=== PATIENT | male | born 1995 | race Caucasian/White ===

== ENCOUNTER 2019-01-04 22:33 | Emergency (ER) | payer OTHER ==
[2019-01-04 22:43] VITALS: BP 128/65; PULSE 81; TEMP 98; BMI 23.1
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
[2019-01-04] MEDS ORDERED: KETOROLAC TROMETHAMINE 30 MG/1 ML VIAL IM ONE (23:39)
[2019-01-04] MEDS ORDERED: KETOROLAC TROMETHAMINE 30 MG/1 ML VIAL ONE (23:55)
[2019-01-05] MEDS ORDERED: IBUPROFEN 600 MG TABLET (FP) PO ONE ×2 (00:03→00:15)
[2019-01-05] MEDS ORDERED: METHOCARBAMOL 500 MG TABLET PO ONE (00:51)
[2019-01-05] MEDS ORDERED: METHOCARBAMOL 500 MG TABLET ONE (00:55)
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
--- NOTE | 2019-01-07 10:37 | EKG ---
Test Reason : Blood Pressure : / mmHG Vent. Rate : 071 BPM Atrial Rate : 071 BPM P-R Int : 146 ms QRS Dur : 096 ms QT Int : 390 ms P-R-T Axes : 058 072 044 degrees QTc Int : 423 ms NORMAL SINUS RHYTHM CANNOT RULE OUT ANTERIOR INFARCT , AGE UNDETERMINED ABNORMAL ECG NO PREVIOUS ECGS AVAILABLE Confirmed by SARA CONRAD MD ([id number]) on 01/07/2019 10:36:51 AM Referred By: Confirmed By:SARA CONRAD MD
== END 2019-01-05 02:41 | disposition home or self-care (01) ==
LOC: JER 22:33
PROC: 3E0233Z Introduction of Anti-inflammatory into Muscle, Percutaneous Approach (ICD-10-PCS; principal; 2019-01-04)
DX: M54.2 Cervicalgia (principal); M54.6 Pain in thoracic spine; R07.9 Chest pain, unspecified; V43.52XA Car driver injured in collision with other type car in traffic accident, initial encounter; Y92.414 Local residential or business street as the place of occurrence of the external cause; Y93.89 Activity, other specified; Y99.8 Other external cause status
CPT/HCPCS: 71046-TC-FY; 72050-TC-FY; 72070-TC-FY; 93005; 93010; 99283-25

== ENCOUNTER 2019-09-11 18:40 | Emergency (ER) | payer OTHER ==
--- NOTE | 2019-09-11 19:04 | PDOC ---
Rapid Medical Evaluation Time Seen by Provider: 09/11/19 19:03 Medical Evaluation: Allergies Allergy/AdvReac Type Severity Reaction Status Date / Time No Known Allergies Allergy Verified 01/04/19 22:43 09/11/19 19:03 I have performed a brief in-person evaluation of this patient. The patient presents with a chief complaint of:R eye pain w/ PEARCE and feeling off balanced Pertinent physical exam findings:unremarkable I have ordered the following:none The patient will proceed to the ED for further evaluation. Discharge Disposition - Diagnosis Pain in right eye - Referrals - Patient Instructions - Post Discharge Activity
[2019-09-11 19:08] VITALS: BP 124/82; PULSE 107; TEMP 98.7; BMI 25.2
== END 2019-09-11 21:00 | disposition left against medical advice (07) ==
LOC: JERFT 18:40
DX: H57.11 Ocular pain, right eye (principal)
CPT/HCPCS: 99281-25

== ENCOUNTER 2019-10-31 11:47 | Emergency (ER) | payer OTHER ==
[2019-10-31 12:03] VITALS: BP 122/70; PULSE 96; TEMP 98.1; BMI 25.0
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
== END 2019-10-31 12:31 | disposition home or self-care (01) ==
LOC: JERFT 11:47
DX: M25.512 Pain in left shoulder (principal); F17.210 Nicotine dependence, cigarettes, uncomplicated; S49.92XA Unspecified injury of left shoulder and upper arm, initial encounter; W18.39XA Other fall on same level, initial encounter; Y93.89 Activity, other specified; Y92.89 Other specified places as the place of occurrence of the external cause
CPT/HCPCS: 99282-25

== ENCOUNTER 2020-10-23 13:05 | Emergency (ER) | payer OTHER ==
[2020-10-23 13:44] VITALS: BP 128/60; PULSE 96; TEMP 98.2; BMI 25.0
[2020-10-23 14:58] LABS: BASO % 0.6 % (0-2.0); EOS % 1.9 % (0-4.5); HEMATOCRIT 44.7 % (35.4-49); LYMPH % 29.6 % (8-40); MCHC 33.5 g/dl (32.0-35.9); MEAN CELL VOLUME 86.5 fl (80-96); MEAN PLT VOLUME 9.2 fl (7.5-11.1); MONO % 7.3 % (3.8-10.2); NEUT % 60.6 % (42.8-82.8); PLATELET COUNT 255 K/MM3 (134-434); RBC 5.17 M/mm3 (4.00-5.60); RDW 13.8 % (11.9-15.9); WHITE BLOOD COUNT 9.1 K/mm3 (4.0-10.0)
[2020-10-23 15:02] LABS: URINE APPEARANCE CLOUDY; URINE BILIRUBIN NEGATIVE (NEGATIVE); URINE COLOR YELLOW; URINE GLUCOSE (UA) NEGATIVE (NEGATIVE); URINE KETONE NEGATIVE (NEGATIVE); URINE LEUK ESTERASE NEGATIVE (NEGATIVE); URINE NITRITE NEGATIVE (NEGATIVE); URINE PROTEIN NEGATIVE (NEGATIVE); URINE UROBILINOGEN 0.2 mg/dL (0.2-1.0)
[2020-10-23 15:15] LABS: CHLORIDE 106 mmol/L (98-107); POTASSIUM 3.7 mmol/L (3.5-5.1); SODIUM 139 mmol/L (136-145)
[2020-10-23 15:18] LABS: CALCIUM 9.3 mg/dL (8.5-10.1)
[2020-10-23 15:19] LABS: ALBUMIN 4.1 g/dl (3.4-5.0); ANION GAP 6 MMOL/L (8-16); BLOOD UREA NITROGEN 10.4 mg/dL (7-18); CO2 27 mmol/L (21-32); GLUCOSE,RANDOM 82 mg/dL (74-106)
[2020-10-23 15:22] LABS: CREATININE 0.8 mg/dL (0.55-1.3); SGOT/AST 24 U/L (15-37); SGPT/ALT 58 U/L (13-61)
[2020-10-23 15:23] LABS: BILIRUBIN,TOTAL 0.8 mg/dL (0.2-1)
[2020-10-23 15:24] LABS: TOT PROT 7.2 g/dl (6.4-8.2)
[2020-10-23 15:25] LABS: ALK PHOS 126 U/L (45-117)
== END 2020-10-23 16:29 | disposition home or self-care (01) ==
LOC: JER 13:05
DX: R07.9 Chest pain, unspecified (principal)
CPT/HCPCS: 36415; 71046-TC-FY; 80053; 81003; 84484; 85025; 87086; 93005; 93010; 99284-25